=== PATIENT | female | born 1940 | race Caucasian/White ===

== ENCOUNTER 2019-03-10 13:33 | Emergency (ER) | payer OTHER, MEDICARE ==
[~2019-03-10] VITALS: Ht 152.4 cm; Wt 46.7 kg
[2019-03-10] MEDS ORDERED: NORCO 5-325 TA1 EACH PO (16:00)
[2019-03-10] MEDS ORDERED: MOBIC7.5 MG PO (16:00)
[2019-03-10] MEDS ORDERED: SENNA-DOCUSATE1 EAC1 PO (16:00)
[2019-03-10 16:57] VITALS: BP 140/83
== END 2019-03-10 16:10 | disposition home or self-care (01) ==
LOC: ER 13:33
DX: S22.32XA Fracture of one rib, left side, initial encounter for closed fracture (principal); M06.9 Rheumatoid arthritis, unspecified; W18.39XA Other fall on same level, initial encounter; Y93.89 Activity, other specified; Y92.091 Bathroom in other non-institutional residence as the place of occurrence of the external cause; Y99.8 Other external cause status